=== PATIENT | female | born 1945 | race Caucasian/White ===

== ENCOUNTER → 2019-02-18 | Outpatient (CLI) | payer MEDICARE ==
--- NOTE | 2019-02-20 12:02 | MM ---
Reason for exam: additional evaluation requested from prior study. Last mammogram was performed less than 1 month ago. History: Patient is postmenopausal. Physical Findings: Nurse did not find any significant physical abnormalities on exam. MG 3D Diag Mammo W/Cad STIVEN Bilateral CC and MLO view(s) were taken. Prior study comparison: February 09, 2019, mammogram, performed at [facility]. August 11, 2018, mammogram, performed at [facility]. February 17, 2018, mammogram, performed at [facility]. January 27, 2018, mammogram, performed at [facility]. The breast tissue is heterogeneously dense. This may lower the sensitivity of mammography. There is chronic nodularity bilaterally. No significant new findings when compared with previous films. These results were verbally communicated with the patient on 02/20/19. ASSESSMENT: Benign, BI-RAD 2 RECOMMENDATION: Routine screening mammogram of both breasts in 1 year.
== END | disposition home or self-care (01) ==
LOC: RADMAMWWP 09:26
PROVIDERS: ATTEND Family Medicine
DX: R92.8 Other abnormal and inconclusive findings on diagnostic imaging of breast (principal)
CPT/HCPCS: 77066; G0279; 77062

== ENCOUNTER → 2021-06-05 | Outpatient (CLI) | payer MEDICARE | END | disposition home or self-care (01) | LOC: LABPAT 13:06 | PROVIDERS: ATTEND Orthopaedic Surgery | DX: Z01.812 Encounter for preprocedural laboratory examination (principal) | CPT/HCPCS: 87070 ==

== ENCOUNTER 2021-06-19 10:45 | Day surgery (SDC) | payer MEDICARE ==
--- NOTE | 2021-06-18 12:28 | HP ---
HISTORY AND PHYSICAL REASON FOR ADMISSION: Surgery is scheduled for 06/19/2021 HISTORY OF PRESENT ILLNESS: Justine Hernandez is a 75-year-old patient seen with symptomatic right knee osteoarthritis. We discussed options for treatment. She elected to proceed with right total knee arthroplasty. Consent was obtained. Medical clearance was provided. PAST MEDICAL HISTORY: Hypothyroidism, hypertension. PAST SURGICAL HISTORY: Tubal ligation, cholecystectomy. DAILY MEDICATIONS: Levothyroxine, ibuprofen, hydrochlorothiazide. ALLERGIES: None. SOCIAL HISTORY: She denies tobacco use. PHYSICAL EVALUATION OF THE RIGHT KNEE: Range of motion is -2/3-120. Mild effusion. Tenderness along the lateral joint line, crepitus, lateral patellofemoral compartments with range of motion. Hip rotation without pain. Distal neurovascular exam intact. RADIOGRAPHS: Right knee radiographs reveal severe lateral, moderate patellofemoral compartment osteoarthritis. IMPRESSION: 1. Right knee osteoarthritis. 2. Hypertension. 3. Hypothyroidism. PLAN: Right total knee arthroplasty. Surgery 06/19/2021. MMODL / IJN: [id number] /
[~2021-06-19 10:45] MED LIST: ACETAMINOPHEN TAB 500 MG TAB PO PRN; DEXAMETHASONE SOD PHOSPHATE 4 MG/ML 1 ML VIAL IV ONE; LIDOCAINE 1% (10MG/ML) FOR IV START INTRADERMA PRN; MELOXICAM 7.5 MG TAB PO PRN; MIDAZOLAM 2 MG/2 ML VIAL IV PRN; ONDANSETRON 4 MG/2 ML VIAL IVP ONE; ROPIVACAINE/EPI/CLONIDINE/KET 50 ML SYRINGE MISCELLANE PRN; TRANEXAMIC ACID 1,000 MG in SODIUM CHLORIDE 0.9% 100 ML IVPB PRN
[2021-06-19] MEDS ORDERED: LACTATED RINGERS 1,000 ML IV ONE (11:47)
[2021-06-19] MEDS ORDERED: MIDAZOLAM 2 MG/2 ML VIAL IVP ONE (12:02)
[2021-06-19] MEDS ORDERED: MIDAZOLAM 2 MG/2 ML VIAL ONE (12:24)
[2021-06-19] MEDS ORDERED: KETAMINE 10 MG/ML 20 ML VIAL ONE (12:24)
[2021-06-19] MEDS ORDERED: SODIUM CHLORIDE 0.9% 100 ML BAG ONE (12:24)
[2021-06-19] MEDS ORDERED: ROPIVACAINE 5 MG/ML 30 ML VIAL ONE (12:24)
[2021-06-19] MEDS ORDERED: TRANEXAMIC ACID 1,000 MG/10 ML VIAL ONE (12:24)
[2021-06-19] MEDS ORDERED: fentaNYL (PF) 50 MCG/ML 2 ML AMP ONE (12:24)
[2021-06-19] MEDS ORDERED: PROPOFOL 10 MG/ML 20 ML VIAL IV ONE (12:24)
[2021-06-19] MEDS ORDERED: diphenhydrAMINE 50 MG/ML 1 ML VIAL ONE (12:24)
[2021-06-19] MEDS ORDERED: ROPIVACAINE 0.2%-NS ON-Q PUMP 1,090 MG, EMPTY PAIN BALL 1 EACH MISCELLANE PRN (13:53)
--- NOTE | 2021-06-19 13:57 | P.ANPRN ---
Procedure Note - Anesthesia - Nerve Block Performed Right Adductor Canal Infusion Time Out Performed: Yes (1200) Date of Procedure: 06/19/21 Procedure Start Time: 12:00 Procedure Stop Time: 12:13 Location of Patient: PreOp Indication: Acute Post-Operative Pain, Dx/Pain Location (Right Knee), Requested by Surgeon Specifically requested for management of pain by DrAurelio: Beto Cramer Sedation Type: Sedate with meaningful contact maintained Preparation: Sterile Prep, Sterile Dressing Position: Supine Catheter: Indwelling Needle Types: Pajunk Needle Gauge: 18 Ultrasound used to visualize needle placement: Yes Ultrasound used to observe medication spread: Yes Injectate: 0.5% Ropivacaine (see comment for volume) (20 cc) Blood Aspirated: No Pain Paresthesia on Injection Noted: No Resistance on Injection: Normal Image Stored and Saved: Yes Events: Uneventful and Well Tolerated Left iPack Single Time Out Performed: Yes Date of Procedure: 06/19/21 Location of Patient: PreOp Indication: Acute Post-Operative Pain, Dx/Pain Location (Right Knee) Specifically requested for management of pain by Dr.: Beto Cramer Sedation Type: Sedate with meaningful contact maintained Preparation: Sterile Prep Position: Left Lateral Catheter: None Needle Types: Pajunk Needle Gauge: 21 Ultrasound used to visualize needle placement: Yes Ultrasound used to observe medication spread: Yes Injectate: 0.5% Ropivacaine (see comment for volume) (20 cc) Blood Aspirated: No Pain Paresthesia on Injection Noted: No Resistance on Injection: Normal Image Stored and Saved: Yes Events: Uneventful and Well Tolerated
[2021-06-19] MEDS ORDERED: hydrOXYzine pamoate 25 MG CAP PO PRN (14:14)
[2021-06-19] MEDS ORDERED: HYDROmorphone 0.2 MG/1 ML SYRINGE IVP PRN (14:14)
[2021-06-19] MEDS ORDERED: HYDROcodone/APAP 5-325MG 1 EACH TAB PO PRN (14:14)
[2021-06-19] MEDS ORDERED: HYDROmorphone 0.5 MG/0.5 ML SYRINGE IVP PRN ×2 (14:14)
[2021-06-19] MEDS ORDERED: NALOXONE 0.4 MG/ML 1 ML VIAL IV PRN (14:14)
[2021-06-19] MEDS ORDERED: ONDANSETRON 4 MG/2 ML VIAL IVP PRN (14:14)
--- NOTE | 2021-06-19 14:14 | P.OP ---
Date of Procedure: 06/19/21 Preoperative Diagnosis: Right knee osteoarthritis Postoperative Diagnosis: Right knee osteoarthritis Procedure(s) Performed: Right total knee arthroplasty Implants: 1. Depuy attune size 6 narrow right cruciate retaining cemented 2. Depuy attune size 5 fixed bearing cemented tibial baseplate 3. Depuy attune size 6 fixed bearing cruciate retaining 5 mm polyethylene tibial insert 4. Depuy attune 38 mm all polyethylene cemented patella Anesthesia: regional (Abductor canal catheter, Ipack block), spinal Surgeon: Beto Cramer Instrument Checker #1: Nazario Schwartz Estimated Blood Loss (ml): 45 Pathology: other (Bone) Condition: stable Disposition: PACU Indications for Procedure: 75-year-old patient seen with symptomatic right knee osteoarthritis. After treatment options were discussed, she elected to proceed with total knee arthroplasty. Operative Findings: See description of procedure Description of Procedure: Patient was taken to the operative suite after having an adductor canal catheter placed by the department of anesthesia as well as and Ipack block for postoperative pain management. Patient underwent a spinal anesthetic by the department of anesthesia. Patient was given preoperative IV intake antibiotics and TXA. A well-padded tourniquet was placed about the right lower extremity. The lower extremity was then prepped and draped in the normal sterile orthopedic fashion. The extremity was elevated, a tourniquet was insufflated to 300. A standard anterior incision was made sharply through skin. Dissection was taken down through the subcutaneous soft tissues down to the extensor mechanism. A medial arthrotomy was performed, patella was everted and knee was flexed. There was advanced osteoarthritis noted. I introduced my distal intramedullary femoral drill. I then introduced the distal femoral cutting jig. Edin GATICA secured the cutting jig with 2 pins. I held retractors in position while Edin GATICA performed the distal femoral resection through the guide area we now removed her distal femoral cutting guide. We now placed our 4-in-1 femoral cutting block and positioned and it was secured with 2 pins by Edin GATICA while I held the block in position. The distal femoral finishing was now completed. A proximal tibial cutting guide was positioned. I held the guide in the appropriate position with both hands well Edin GATICA inserted stabilizing pins into the guide. Proximal tibial cut was made. We now placed a trial femoral component into position, along with an appropriate size tibial tray and insert. We now took the knee through range of motion and had full extension good flexion and good overall soft tissue balance noted. The patella was everted and stabilized with 2 towel clips held by Edin GATICA while I performed a flush with patellar quad tendon utilizing a fresh sawblade. We templated the patella, appropriate drill holes were made. An appropriate trial patella was positioned, knee was taken through full range of motion with the patella tracking very nicely. The trial patella was removed. Drill holes were made through the femoral component. All trial components were removed after marking off the appropriate rotation of the tibia. Retractors were now positioned along the proximal tibia. An appropriate keel punch was made with the appropriate size tibial guide by myself on Edin GATICA assisted by holding retractors. At this point appropriate size implants were chosen and opened. The joint was irrigated copiously with pulse lavage mechanical irrigation. The posterior capsule was infiltrated with local analgesic. The wound was irrigated with pulse lavage mechanical irrigation. We mixed antibiotic methylmethacrylate. We placed the knee into flexion. We placed multiple retractors assisted by Edin GATICA to expose the proximal tibia. Once the methyl methacrylate was ready, the tibial component was cemented into place removing any excess methylmethacrylate form by both myself and Edin GATICA. The femoral component was cemented into place removing the removing any excess methylmethacrylate performed by both myself and Edin GATICA. We then inserted the appropriate size polyethylene tibial insert. We made sure that it was locked into position. We took the knee into full extension, and then back in a flexion making sure we had removed any excess methylmethacrylate. The patellar component was then cemented down and secured with clamp. Excess methylmethacrylate removed. We kept the knee in full extension, patellar clamp in position until methylmethacrylate had hardened. Once it had hardened the patellar clamp was removed. The knee was taken through full range of motion. The patella tracked nicely. There was good soft tissue balancing. The tourniquet was now released. Additional hemostasis was achieved via electrocautery. A second gram of TXA was given. The wound again was irrigated with pulse lavage mechanical irrigation. The extensor mechanism was repaired with Ethibond. We checked the repair with range of motion and it was stable. The subcutaneous soft tissues were repaired with Vicryl in layers. The skin was approximated with pernio/Dermabond. Sterile dressings were applied followed by loose web roll and Jagdish bandage. The patient was transferred to a bed, and taken to recovery in stable and satisfactory condition. Edin GATICA assisted with this complex procedure.
--- NOTE | 2021-06-19 15:43 | XR ---
EXAMINATION TYPE: XR knee limited RT DATE OF EXAM: 06/19/2021 COMPARISON: NONE TECHNIQUE: Two views submitted HISTORY: Post op FINDINGS: There is a prosthetic knee in near anatomic alignment. There is soft tissue edema and emphysema. IMPRESSION: 1. Postoperative change. Appears in near-anatomic alignment
[2021-06-19] MEDS: HYDROmorphone 0.5 MG/0.5 ML SYRINGE IVP PRN ×2 (17:33→18:05)
[2021-06-19] MEDS: SODIUM CHLORIDE 0.9% 1,000 ML IV SCH (18:12)
[2021-06-19] MEDS: LACTATED RINGERS 1,000 ML IV SCH (18:15)
[2021-06-19] MEDS: ENOXAPARIN 30 MG/0.3 ML SYRINGE SQ SCH (19:58)
[2021-06-19] MEDS ORDERED: SENNOSIDES-DOCUSATE SODIUM 1 EACH TAB PO SCH (21:00)
[2021-06-19] MEDS: HYDROcodone/APAP 5-325MG 1 EACH TAB PO PRN (22:26)
--- NOTE | 2021-06-19 22:55 | P.CONS ---
History of Present Illness - Reason for Consult Consult date: 06/19/21 Postoperative medical management Requesting physician: Beto Cramer - Chief Complaint Right total knee arthroplasty - History of Present Illness 75-year-old female with hypothyroid hypertension and osteoarthritis Patient comes in for scheduled right total knee arthroplasty due to severe advanced os arthritis Patient tolerated procedure well denies any observed immediate postoperative complications denies any chest pain trouble breathing nausea vomiting. She is tolerating by mouth intake. She currently feels pain is well tolerated and controlled. She claims that she is at good baseline status of health she has hypertension and hypothyroid, takes medications for both. She currently denies any medical concerns at this point Review of Systems Pertinent positives as noted in HPI. All other systems were reviewed and are negative Past Medical History Past Medical History: Hypertension, Osteoarthritis (OA), Thyroid Disorder Additional Past Medical History / Comment(s): chronic kidney disease stage 2, urinary leakage. Had both Covid (Moderna) vaccines History of Any Multi-Drug Resistant Organisms: None Reported Past Surgical History: Cholecystectomy, Orthopedic Surgery, Tubal Ligation Additional Past Surgical History / Comment(s): cyst removed from left wrist, arthroscopy rt knee Past Anesthesia/Blood Transfusion Reactions: No Reported Reaction Past Psychological History: No Psychological Hx Reported Smoking Status: Never smoker Past Alcohol Use History: Rare Past Drug Use History: None Reported - Past Family History Father Family Medical History: CVA/TIA Mother Family Medical History: No Reported History Medications and Allergies Home Medications Medication Instructions Recorded Confirmed Type Calcium Carbonate [Calcium] 600 mg PO DAILY 02/21/16 06/14/21 History Ibuprofen [Motrin] 600 mg PO DIRECTED PRN 02/21/16 06/14/21 History Levothyroxine Sodium [Synthroid] 25 mcg PO QAM 02/21/16 06/19/21 History Multivitamins, Thera [Multivitamin] 1 tab PO DAILY 02/21/16 06/14/21 History Hydrochlorothiazide 12.5 mg PO QAM 06/14/21 06/14/21 History [hydroCHLOROthiazide] Allergies Allergy/AdvReac Type Severity Reaction Status Date / Time No Known Allergies Allergy Verified 06/19/21 11:47 Physical Exam Vitals: Vital Signs Temp Pulse Pulse Resp BP BP Pulse Ox 06/19/21 18:47 97.7 F 72 16 117/74 95 06/19/21 17:50 61 16 127/73 98 06/19/21 17:33 64 16 131/73 99 06/19/21 16:45 53 L 16 118/75 99 06/19/21 16:10 53 L 16 111/65 98 06/19/21 15:41 50 L 16 119/64 96 06/19/21 15:15 51 L 16 120/63 100 06/19/21 15:00 55 L 16 130/60 100 06/19/21 14:45 56 L 16 114/56 100 06/19/21 14:31 97.5 F L 64 16 145/65 100 06/19/21 11:45 98.3 F 95 16 154/80 96 Intake and Output 06/19/21 06/19/21 06/19/21 06:59 14:59 22:59 Intake Total 950 100 Output Total 45 650 Balance 905 -550 Intake: IV 950 100 Output: Urine 650 Estimated Blood Loss 45 Other: # Voids 1 Weight 83.6 kg 83.6 kg Constitutional: No acute distress, conversant, pleasant Eyes: Anicteric sclerae, moist conjunctiva, Pupils equal round reactive to light ENMT: NC/AT Oropharynx clear, no erythema, or exudates Neck: Supple, FROM, no masses, or JVD No carotid bruits No thyromegaly Lungs: Clear to auscultation Clear to percussion Normal respiratory effort, no accessory muscle use Cardiovascular: Heart regular in rate and rhythm, No murmurs, gallops, or rubs No peripheral edema Abdominal: Soft Nontender, no guarding, rebound or rigidity Abdomen moving with respiration Normoactive bowel sounds No hepatomegaly, No splenomegaly No palpable mass No abdominal wall hernia noted Skin: Normal temperature, tone, texture, turgor No induration No subcutaneous nodules No rash, lesions No ulcers Extremities: No digital cyanosis No clubbing Pedal pulses intact and symmetrical Radial pulses intact and symmetrical No calf tenderness Psychiatric: Alert and oriented to person, place and time Appropriate affect fair judgement Neuro Muscles Strength 5/5 in bilateral upper extremity and left lower extremity, right lower extremity limited exam due to recent surgery Sensation to light touch grossly present throughout Cranial nerves II-XII grossly intact No focal sensory deficits Lymphatics: no palpable cervical or supraclavicular , or inguinal lymph nodes Assessment and Plan Assessment: Status post right total knee arthroplasty postoperative day 0 Pain control and DVT prophylaxis management per orthopedics Hypertension controlled Resume hydrochlorothiazide in a.m. Hypothyroid Resume levothyroxine in a.m. Follow-up basic metabolic panel and CBC in a.m. Thank you for allowing us to participate in the care of this patient. Do not hesitate to contact us with questions. Someone can be reached from the [facility] hospitalist group at all hours of the day at [phone].
[2021-06-20] MEDS: HYDROcodone/APAP 5-325MG 1 EACH TAB PO PRN ×2 (05:32→11:46)
[2021-06-20] MEDS: LACTATED RINGERS 1,000 ML IV SCH (06:21)
[2021-06-20] MEDS ORDERED: LEVOTHYROXINE 25 MCG TAB PO SCH (06:30)
--- NOTE | 2021-06-20 07:05 | P.PN ---
Progress Note - Text Postoperative day # 1 status post total knee arthroplasty, on adductor canal perineural catheter placed for postoperative analgesia. Ropivacaine 0.2% 8 mL per hour through ON-Q pump continuous infusion. Pain is well controlled. On visual analog scale 1/10 Patient is taking PRN oral pain medications. Catheter site: Looks Ok. There is no erythema or tenderness. Continue with the current pain management plan and will follow.
[2021-06-20] MEDS: ENOXAPARIN 30 MG/0.3 ML SYRINGE SQ SCH (07:30)
[2021-06-20 07:57] VITALS: RESP 16; TEMP 98.6
[2021-06-20] MEDS ORDERED: hydroCHLOROthiazide 12.5 MG CAP PO SCH (09:00)
[2021-06-20] MEDS ORDERED: MELOXICAM 7.5 MG TAB PO SCH (09:00)
--- NOTE | 2021-06-20 10:22 | P.DS ---
Providers Date of admission: 06/19/2021 Expected date of discharge: 06/20/21 Attending physician: Beto Cramer Consults: 06/19/21 14:14 Consult Physician Routine Consulting Provider: Javy Briceño Consult Reason/Comments: Medical management Do you want consulting provider notified?: Yes Primary care physician: Edin Dominguez Hospital Course: Date of admission: 06/19/2021 Date of discharge: 06/20/2021 Admission diagnosis: Right knee osteoarthritis Discharge diagnosis: Same Attending physician: Dr. Cramer Surgical procedures: Right total knee arthroplasty Brief history: Patient is a 75-year-old female with a history of progressive primary right knee osteoarthritis. At this point patient has failed conservative treatment measures and has opted to proceed with a elective right total knee arthroplasty. Hospital course: Details of patient's surgery can be found in operative report. Patient tolerated the procedure well and was subsequently transported to orthopedic floor. Patient's orthopeidc and medical care was provided daily. Patient had daily laboratory tests performed for evaluation of overall blood c ounts. Patient had daily physical therapy to include strengthening range of motion as well as education with walker ambulation. Patient was treated with Lovenox for their postoperative DVT prophylaxis during their inpatient stay. Patient was noted to have a relatively uneventful postoperative course. Patient reported satisfactory pain control with oral pain medications by postoperative day 1. Patient showed satisfactory progress with physical therapy. Patient moved steadily through the program and had no difficulty meeting the goals by postoperative day 1. Given patient's otherwise satisfactory course and having met physical therapy goals, plan is to discharge patient home on postoperative day 1. Discharge condition/disposition: Patient will be discharged home in stable condition. Discharge medications: Instructions are given on resumption of patient's normal daily medications per primary care recommendation, in addition patient will be prescribed Lyrica 75 mg; [place] 5 mg/325 mg; aspirin 81 mg twice a day. Discharge instructions: 1. Wound care and infection precautions, keep incision dry and covered while showering, no lotions, creams, moisturizers. No soaking, tubs, pools, hottubs. Do not scrub over the incision. 2. Weight-bear as tolerated with walker / cane until follow-up. 3. Ice and elevate when necessary. Do not exceed 20 minutes per hour with ice pack. 4. Utilize compression sleeve until seen at first follow up appointment. 5. Visiting nursing care. 6. Home physical therapy including home CPM. 7. Pain meds and anticoagulants per prescription. 8. Pain medication has potential to cause constipation. Increase oral fluid and fiber intake. Contact primary care provider if you have not had a bowel movement within 48 hours after discharge 9. No anti-inflammatory medication until discussed at first post operative visit, this including Motrin, Aleve, Mobic, Diclofenac. 10. Follow up in office at 2 weeks postop with Edin Schwartz PA-C / Charles Campbell PA-C 11. Follow up with your primary care doctor 7-10 days after discharge. 12. Contact [facility] with any questions, . Assessment: Right knee osteoarthritis Procedures: Right total knee arthroplasty Patient Condition at Discharge: Good Plan - Discharge Summary Discharge Rx Participant: No New Discharge Prescriptions: New HYDROcodone/APAP 5-325MG [[place] 5-325] 1 tab PO Q6HR PRN #21 tab PRN Reason: Pain Aspirin [Adult Low Dose Aspirin EC] 81 mg PO BID #60 tablet. Pregabalin [Lyrica] 75 mg PO BID #21 cap No Action Multivitamins, Thera [Multivitamin] 1 tab PO DAILY Levothyroxine Sodium [Synthroid] 25 mcg PO QAM Ibuprofen [Motrin] 600 mg PO DIRECTED PRN PRN Reason: Pain Calcium Carbonate [Calcium] 600 mg PO DAILY Hydrochlorothiazide [hydroCHLOROthiazide] 12.5 mg PO QAM Discharge Medication List Calcium Carbonate [Calcium] 600 mg PO DAILY 02/21/16 [History] Ibuprofen [Motrin] 600 mg PO DIRECTED PRN 02/21/16 [History] Levothyroxine Sodium [Synthroid] 25 mcg PO QAM 02/21/16 [History] Multivitamins, Thera [Multivitamin] 1 tab PO DAILY 02/21/16 [History] Hydrochlorothiazide [hydroCHLOROthiazide] 12.5 mg PO QAM 06/14/21 [History] Aspirin [Adult Low Dose Aspirin EC] 81 mg PO BID #60 tablet. 06/20/21 [Rx] HYDROcodone/APAP 5-325MG [[place] 5-325] 1 tab PO Q6HR PRN #21 tab 06/20/21 [Rx] Pregabalin [Lyrica] 75 mg PO BID #21 cap 06/20/21 [Rx] Follow up Appointment(s)/Referral(s): [facility] [NON-STAFF] - As Needed (Continuous Passive Motion knee machine and walker) [facility] [NON-STAFF] - As Needed Activity/Diet/Wound Care/Special Instructions: Orthopedic Discharge Instructions: 1. Wound care and infection precautions, keep incision dry and covered while showering, no lotions, creams, moisturizers. No soaking, pools, hot tubs. Do not scrub over incision. 2. Weight-bear as tolerated with walker / cane until follow-up. 3. Ice and elevate when necessary. Do not exceed 20 minutes per hour with ice pack. 4. Utilize compression sleeve until seen at first follow up appointment. 5. Pain meds and anticoagulants per prescription. 6. Pain medication has potential to cause constipation. Increase oral fluid and fiber intake. Contact primary care provider if you have not had a bowel movement within 48 hours after discharge. 7. No anti-inflammatory medication until discussed at first post operative visit, this including Motrin, Aleve, Mobic, Diclofenac 8. Follow up in office at 2 weeks postop with Edin Schwartz PA-C / Charles Campbell PA-C 9. Follow up with your primary care doctor 7-10 days after discharge. 10. Contact [facility] with any questions, . Discharge Disposition: HOME WITH HOME HEALTH SERVICES
[2021-06-20] MEDS: SODIUM CHLORIDE 0.9% 1,000 ML IV SCH (10:26)
[2021-06-20 11:03] LABS: Basophils # (A) 0.03 X 10*3/uL (0.00-0.10); Basophils % (A) 0.3 %; Eosinophils # (A) 0.03 X 10*3/uL (0.04-0.35); Eosinophils % (A) 0.3 %; HCT 36.4 % (37.2-46.3); HGB 11.8 g/dL (12.0-15.0); Lymphocytes # (A) 1.62 X 10*3/uL (0.90-5.00); Lymphocytes % (A) 16.4 %; MCH 30.5 pg (27.0-32.0); MCHC 32.4 g/dL (32.0-37.0); MCV 94.1 fL (80.0-97.0); Mean Platelet Volume 10.4 fL (9.5-12.2); Monocytes # (A) 0.91 X 10*3/uL (0.20-1.00); Monocytes % (A) 9.2 %; Neutrophils # (A) 7.27 X 10*3/uL (1.80-7.70); Neutrophils % (A) 73.5 %; Platelet Count 191 X 10*3/uL (140-440); RBC 3.87 X 10*6/uL (4.10-5.20); WBC 9.89 X 10*3/uL (4.50-10.00)
[2021-06-20 11:57] VITALS: BP 108/71; PULSE 65
--- NOTE | 2021-06-20 12:44 | P.PN ---
Subjective Progress Note Date: 06/20/21 Patient was seen and evaluated by me this morning. Her blood pressure was slightly low this morning the patient denies any dizziness or lightheadedness. Repeat blood pressure later was normal. Her pain is well controlled. Objective - Vital Signs Vital signs: Vital Signs Temp 98.6 F 06/20/21 07:56 Pulse 65 06/20/21 11:57 Resp 16 06/20/21 07:56 BP 108/71 06/20/21 11:57 Pulse Ox 95 06/20/21 07:56 Intake & Output 06/19/21 06/20/21 06/20/21 18:59 06:59 18:59 Intake Total 1050 400 Output Total 45 650 Balance 1005 -250 Weight 83.6 kg 83.6 kg Intake: IV 1050 Intake, IV Titration 400 Amount ceFAZolin 2 gm In Sodium 400 Chloride 0.9% 50 ml @ 100 mls/hr IVPB Q8H KALLI Rx#: [id number] Output: Urine 650 Estimated Blood Loss 45 Other: Voiding Method Toilet # Voids 1 - Exam General: The patient is awake and alert, in no distress Eye: there is normal conjunctiva bilaterally. Neck: The neck is supple, there is no JVD. Cardiovascular: Normal S1-S2, no S3-S4, no murmurs. Respiratory: Lungs clear to auscultation bilaterally Gastrointestinal: Abdomen is soft, nontender Musculoskeletal: There is no pedal edema. Neurological:. Speech is normal. Skin: Skin is warm and dry - Labs CBC & Chem 7: 06/20/21 07:02 Labs: Abnormal Lab Results - Last 24 Hours (Table) 06/20/21 Range/Units 07:02 RBC 3.87 L (4.10-5.20) X 10*6/uL Hgb 11.8 L (12.0-15.0) g/dL Hct 36.4 L (37.2-46.3) % Eosinophils # 0.03 L (0.04-0.35) X 10*3/uL Assessment and Plan Assessment: 1. Postoperative day #1 status post total right knee arthroplasty. Postoperative care, pain control, and DVT prophylactic per orthopedic protocol. 2. Essential hypertension, blood pressure within acceptable range. Continue home medications 3. Hypothyroidism on levothyroxin Today, I reviewed her medication list and lab work results. Continue home medications. Patient is medically cleared for discharge home. Physical therapy as directed.
--- NOTE | 2021-06-20 12:49 | P.PN ---
Subjective Progress Note Date: 06/20/21 Principal diagnosis: Right knee osteoarthritis Patient seen at bedside this morning. Patient sitting up in chair with legs elevated and icing knee. Patient says she is in minimal pain. She says she received a pain pill this morning and before that was late last night. Patient says physical therapy went well this morning and that she is ready to go home. Patient denies chest pain, fever, chest breath, nausea, vomiting, change in vision, loss of bowel/bladder control. Objective - Vital Signs Vital signs: Vital Signs Temp 98.6 F 06/20/21 07:56 Pulse 63 06/20/21 07:56 Resp 16 06/20/21 07:56 BP 96/60 06/20/21 07:56 Pulse Ox 95 06/20/21 07:56 Intake & Output 06/19/21 06/20/21 06/20/21 18:59 06:59 18:59 Intake Total 1050 400 Output Total 45 650 Balance 1005 -250 Weight 83.6 kg 83.6 kg Intake: IV 1050 Intake, IV Titration 400 Amount ceFAZolin 2 gm In Sodium 400 Chloride 0.9% 50 ml @ 100 mls/hr IVPB Q8H KALLI Rx#: [id number] Output: Urine 650 Estimated Blood Loss 45 Other: # Voids 1 - Exam Right knee: Incision is clean, dry, and intact. The silver foam tape is in good condition. There is minimal soft tissue swelling and ecchymosis surrounding the medial and lateral aspects of the incision. Calf is soft, no tenderness with palpation. Plantar flexion, dorsiflexion, EHL, FHL are intact. Sensory exam to light touch throughout the extremity is intact, dorsal pedis pulses 2+. - Labs CBC & Chem 7: 06/20/21 07:02 Assessment and Plan Assessment: Right knee osteoarthritis Plan: 1. Right knee osteoarthritis - right total knee arthroplasty performed yesterday, 06/19/2021. Patient stable this morning; plan for discharge home today 2. Appreciate medical management 3. Pain management - stable at this time. Going home with [place] 5 mg/325 mg and Lyrica 75 mg 4. GI prophylaxis/ DVT prophylaxis - senna; lovenox; patient going home with aspirin 81 mg BID x 30 days 5. Encourage incentive spirometer use 6. PT/OT - weightbearing as tolerated with walker for assistance 7. Discharge planning - discharge home today Time with Patient: Less than 30
[2021-06-20 14:00] LABS: African American GFR (CKD) 97.5 (60.0-200.0); Anion Gap 5.7 mmol/L (4.00-12.00); BUN/Creat Ratio 18.57 Ratio (12.00-20.00); Calcium 8.4 mg/dL (8.7-10.3); Carbon Dioxide 25.3 mmol/L (21.6-31.8); Non-African American GFR(CKD) 84.2 (60.0-200.0); Potassium 4.1 mmol/L (3.5-5.5)
== END 2021-06-20 13:46 | disposition home health service (06) ==
LOC: OR 10:45 → 4SSUR 14:05 → OR 06-20 13:46
PROVIDERS: ATTEND Orthopaedic Surgery
DX: M17.11 Unilateral primary osteoarthritis, right knee (principal); E03.9 Hypothyroidism, unspecified; I12.9 Hypertensive chronic kidney disease with stage 1 through stage 4 chronic kidney disease, or unspecified chronic kidney disease; N18.2 Chronic kidney disease, stage 2 (mild); Z98.51 Tubal ligation status; Z90.49 Acquired absence of other specified parts of digestive tract; Z79.1 Long term (current) use of non-steroidal anti-inflammatories (NSAID); Z79.890 Hormone replacement therapy; Z79.899 Other long term (current) drug therapy; Z79.82 Long term (current) use of aspirin
CPT/HCPCS: 27447; 97161; 64999; 64448; 76942; 80048; 85025; 88300; 73560; C1776; C1713 ×2; J2250; J1200; J1100; J0690 ×2; J2405; J3010; J1650; J2795 ×2; J2704; J1170

== ENCOUNTER → 2022-03-05 | Outpatient (CLI) | payer MEDICARE | END | disposition home or self-care (01) | LOC: LABWHC1 07:15 | PROVIDERS: ATTEND Orthopaedic Surgery | DX: Z01.812 Encounter for preprocedural laboratory examination (principal); Z22.322 Carrier or suspected carrier of Methicillin resistant Staphylococcus aureus; M16.11 Unilateral primary osteoarthritis, right hip | CPT/HCPCS: 87070 ==

== ENCOUNTER 2022-03-12 12:57 | Day surgery (SDC) | payer MEDICARE ==
[2022-03-09 10:08] VITALS: BMI 28.5
--- NOTE | 2022-03-11 12:40 | HP ---
HISTORY AND PHYSICAL DATE OF SURGERY: 03/12/2022 Justine Hernandez is a 76-year-old patient seen with symptomatic right hip osteoarthritis. We discussed options for treatment. She elected to proceed with direct anterior right total hip arthroplasty. Consent was obtained. Clearance was provided by Johnathan Turner NP. PAST MEDICAL HISTORY: Hypothyroidism, hypertension, IBS. PAST SURGICAL HISTORY: Tubal ligation, breast biopsy, right total knee arthroplasty. DAILY MEDICATIONS: Levothyroxine, hydrochlorothiazide, multivitamin, ibuprofen. ALLERGIES: NONE. SOCIAL HISTORY: She denies tobacco use. PHYSICAL EVALUATION OF THE RIGHT HIP: She has diffuse tenderness. She has very limited range of motion with severe pain. Positive hip impingement sign. Straight-leg raise is negative. Her distal neurovascular exam is intact. Radiographs of the right hip reveal severe osteoarthritic changes. IMPRESSION: 1. Right hip osteoarthritis. 2. Hypertension. 3. Hypothyroidism. PLAN: Direct anterior right total hip arthroplasty. MMODL / IJN: [id number] /
[~2022-03-12 12:57] MED LIST changes: -DEXAMETHASONE SOD PHOSPHATE 4 MG/ML 1 ML VIAL IV ONE; -LIDOCAINE 1% (10MG/ML) FOR IV START INTRADERMA PRN; -MIDAZOLAM 2 MG/2 ML VIAL IV PRN; -ONDANSETRON 4 MG/2 ML VIAL IVP ONE; -ROPIVACAINE/EPI/CLONIDINE/KET 50 ML SYRINGE MISCELLANE PRN; -TRANEXAMIC ACID 1,000 MG in SODIUM CHLORIDE 0.9% 100 ML IVPB PRN; +TRANEXAMIC ACID IN NACL,ISO-OS 1,000 MG in SALINE 1 100ML.BAG IVPB PRN
[2022-03-12] MEDS ORDERED: LACTATED RINGERS 1,000 ML IV SCH (13:09)
[2022-03-12] MEDS ORDERED: ONDANSETRON 4 MG/2 ML VIAL IVP ONE (13:09)
[2022-03-12] MEDS ORDERED: DEXAMETHASONE SOD PHOSPHATE 4 MG/ML 1 ML VIAL IV ONE (13:09)
[2022-03-12] MEDS ORDERED: HYDROmorphone 0.5 MG/0.5 ML SYRINGE IVP PRN ×4 (13:09→16:41)
[2022-03-12] MEDS ORDERED: LIDOCAINE 1% (10MG/ML) FOR IV START INTRADERMA PRN (13:09)
[2022-03-12] MEDS ORDERED: MIDAZOLAM 2 MG/2 ML VIAL IV PRN (13:09)
[2022-03-12] MEDS ORDERED: MIDAZOLAM 2 MG/2 ML VIAL ONE (15:05)
[2022-03-12] MEDS ORDERED: PROPOFOL 10 MG/ML 20 ML VIAL IV ONE (15:05)
[2022-03-12] MEDS ORDERED: KETAMINE 10 MG/ML 20 ML VIAL ONE (15:05)
[2022-03-12] MEDS ORDERED: diphenhydrAMINE 50 MG/ML 1 ML VIAL ONE (15:05)
[2022-03-12] MEDS ORDERED: TRANEXAMIC ACID IN NACL,ISO-OS 1,000 MG/100 ML BAG ONE (15:05)
[2022-03-12] MEDS ORDERED: fentaNYL (PF) 50 MCG/ML 2 ML AMP ONE (15:05)
[2022-03-12] MEDS ORDERED: BUPIVACAINE (PF) 0.5% 30 ML VIAL SQ ONE ×2 (15:54→16:26)
[2022-03-12] MEDS ORDERED: ceFAZolin 1,000 MG in SODIUM CHLORIDE 0.9% 1,000 ML IRRIGATION ONE (15:55)
[2022-03-12] MEDS ORDERED: LACTATED RINGERS 1,000 ML IV ONE (16:32)
[2022-03-12] MEDS ORDERED: ONDANSETRON 4 MG/2 ML VIAL IVP PRN (16:41)
[2022-03-12] MEDS ORDERED: NALOXONE 0.4 MG/ML 1 ML VIAL IV PRN (16:41)
[2022-03-12] MEDS ORDERED: HYDROcodone/APAP 5-325MG 1 EACH TAB PO PRN (16:41)
--- NOTE | 2022-03-12 16:41 | P.OP ---
Date of Procedure: 03/12/22 Preoperative Diagnosis: Right hip osteoarthritis Postoperative Diagnosis: Right hip osteoarthritis Procedure(s) Performed: Direct anterior right total hip arthroplasty Implants: 1. Depuy Corail 135 standard collar size 13 press-fit femoral stem 2. Depuy pinnacle 54 mm multi hole press-fit acetabular shell 3. Depuy pinnacle neutral polyethylene acetabular liner 36 mm ID 54 mm OD 4. Biolox delta ceramic femoral head +1.5 36 mm Anesthesia: GERI, spinal Surgeon: Beto Cramer Photographer Scientific #1: Charles Campbell Estimated Blood Loss (ml): 125 Pathology: other (Femoral head) Condition: stable Disposition: PACU Indications for Procedure: 76-year-old patient seen with symptomatic right hip osteoarthritis. After treatment options were discussed, she elected to proceed with direct anterior right total hip arthroplasty. Operative Findings: See description of procedure Description of Procedure: The patient was taken to the operative suite. Patient underwent a spinal anesth etic by the department of anesthesia. Patient was then transferred to the Jacki table. Patient was given preoperative IV antibiotics and TXA. Both lower extremities were placed in standard leg spars. The hip was then prepped and draped in the normal sterile orthopedic fashion. A standard anterior incision was made beginning 3 cm lateral and 1 cm distal to the ASIS extending 10 cm. Dissection was then carried down through the subcutaneous soft tissues down to the fascia overlying the tensor fascia ronda. I noted the patient was having some increased pain and anesthesia converted her to a general anesthetic at this point. An incision was now made through the fascia. Careful dissection was taken down exposing the tensor fascia ronda muscle. A Cobra retractor was now placed along the medial femoral neck and a second one along the lateral femoral neck. The venous circumflex vessels were now identified, cauterized and clipped. We identified the anterior hip capsule. An incision was made through the hip capsule along the lateral border. I performed a partial anterior capsulectomy. Retractors were now placed around the femoral neck itself. A femoral neck cut was now made with a sagittal saw. It was completed with an osteotome at the lateral neck area. The femoral head was now removed without difficulty. The extremity was now rotated to 60 of external rotation. It was locked in position. Residual labrum was now debrided out. Serial reaming was performed of the acetabulum while Charles GATICA assisted holding an anterior retractor for exposure. Once we reached the appropriate size and a trial was position and fit nicely. The appropriate size was now chosen opened and made available. It was introduced into the acetabulum without difficulty. The C-arm/fluoroscopy was now brought into the operative field. We made sure we had a true AP pelvic view. We now under direct C-arm/fluoroscopy introduced into the acetabular component with appropriate version and inclination. I held the cup in appropriate position while Charles GATICA used a mallet to seat the acetabular component. I noted the component now to be well seated and stable. Acetabular cup introduce her was removed. The C-arm was pulled back. An appropriate liner was introduced and clicked into position. It was felt to be stable. At this point retractors were removed. The extremity was now placed into 140 external rotation with no traction. The leg was now dropped to the ground and adducted. Appropriate retractors were now positioned along the proximal femur. We also placed our femoral look into position. Additional capsular releasing was performed to gain access to the proximal femur. We now used a box osteotome. A canal finder was now utilized. Serial broaching was no w performed with the assistance of Charles GATICA tapping the broaches down with a mallet while held the broach in appropriate rotation and position. This was done until we reached the appropriate size with good overall rotational stability. Appropriate calcar planing was performed. A trial head/neck was placed into position. The hip was now reduced. The C-arm/fluoroscopy was brought back into the operative field. I obtained an AP pelvis demonstrating adequate leg length alignment. The trial components appeared adequately sized inadequately position. The C-arm/fluoroscopy was pulled back. Retractors were repositioned and the hip was dislocated. The leg was again taken down to the ground and adducted. Appropriate retractors were repositioned as well as the femoral hook. All trial components were removed. The femoral implant was opened along with the femoral head. The femoral implant was introduced on the appropriate handle into our pre-broached area. I held the component position while Charles GATICA used a mallet to seat the femoral component. The femoral component was now noted to be well seated and stable.. The femoral head was introduced with good positioning and fixation noted. Retractors were now removed. The hip was now reduced. There appeared be good positioning of the hip confirmed on intraoperative fluoroscopy. Spot films were obtained to document this. A second gram of TXA was given. The deep and superficial soft tissues were infiltrated with local analgesic. Bipolar cautery had been utilized intermittently through the procedure for hemostasis. The wound was irrigated copiously with pulse lavage mechanical irrigation. The fascia was repaired with Vicryl suture. The subcutaneous soft tissues were repaired in layers with Vicryl suture. The skin was approximated with pernio/Dermabond. Sterile dressings were applied. Patient was then awakened, transferred to a bed and taken to recovery in stable condition. Charles GATICA assisted with the complex procedure.
[2022-03-12] MEDS ORDERED: SENNOSIDES-DOCUSATE SODIUM 1 EACH TAB PO SCH (21:00)
--- NOTE | 2022-03-12 21:12 | XR ---
EXAMINATION TYPE: XR Hip Limited RT, FL guidance operating room DATE OF EXAM: 03/12/2022 4:31 PM INDICATION: Patient age:Female; 76 years old; Reason for study: rt hip osteoarthritis;. Intraoperative fluoroscopic services were provided for internal fixation of a Right hip Total fluoros copy time is 21.4 seconds with a total of 2 submitted images to PACS. Please see the operative note f or further details.
[2022-03-12] MEDS: LACTATED RINGERS 1,000 ML IV SCH (21:28)
[2022-03-13] MEDS: HYDROcodone/APAP 5-325MG 1 EACH TAB PO PRN ×3 (05:53→16:13)
[2022-03-13] MEDS ORDERED: hydroCHLOROthiazide 12.5 MG CAP PO SCH (09:00)
[2022-03-13] MEDS ORDERED: ENOXAPARIN 40 MG/0.4 ML SYRINGE SQ SCH (09:00)
[2022-03-13] MEDS ORDERED: LEVOTHYROXINE 25 MCG TAB PO SCH (09:00)
[2022-03-13] MEDS ORDERED: FAMOTIDINE 20 MG TAB PO SCH (09:00)
[2022-03-13 09:13] LABS: Basophils # (A) 0.03 X 10*3/uL (0.00-0.10); Basophils % (A) 0.3 %; Eosinophils # (A) 0.02 X 10*3/uL (0.04-0.35); Eosinophils % (A) 0.2 %; HCT 34.5 % (37.2-46.3); HGB 11.4 g/dL (12.0-15.0); Immature Grans, Automated 0.4 %; Lymphocytes # (A) 1.59 X 10*3/uL (0.90-5.00); Lymphocytes % (A) 17.5 %; MCH 30.9 pg (27.0-32.0); MCV 93.5 fL (80.0-97.0); Mean Platelet Volume 10.2 fL (9.5-12.2); Monocytes # (A) 0.92 X 10*3/uL (0.20-1.00); Monocytes % (A) 10.2 %; NRBC Per 100 WBC 0 /100 WBCS (0.0-0.0); Neutrophils # (A) 6.46 X 10*3/uL (1.80-7.70); Neutrophils % (A) 71.4 %; Platelet Count 206 X 10*3/uL (140-440); RBC 3.69 X 10*6/uL (4.10-5.20); RDW 12.8 % (11.5-14.5); WBC 9.06 X 10*3/uL (4.50-10.00)
[2022-03-13] MEDS: LACTATED RINGERS 1,000 ML IV SCH (10:19)
--- NOTE | 2022-03-13 10:38 | P.PN ---
Subjective Progress Note Date: 03/13/22 Principal diagnosis: status post direct anterior right total hip arthroplasty Patient was evaluated today at bedside, she is resting in her hospital chair. She's been up ambulating with the assistance of a walker. She was able to also work with physical therapy and did very well. Her pain is currently controlled with oral medication. She currently has no headaches, lightheadedness, chest pain or shortness of breath. Objective - Vital Signs Vital signs: Vital Signs Temp 98.5 F 03/13/22 08:00 Pulse 73 03/13/22 08:00 Resp 16 03/13/22 08:00 BP 102/63 03/13/22 08:00 Pulse Ox 94 L 03/13/22 08:00 Intake & Output 03/12/22 03/13/22 03/13/22 18:59 06:59 18:59 Intake Total 1251 Output Total 125 500 Balance 1126 -500 Weight 84.4 kg 84.4 kg Intake: IV 1251 Output: Urine 500 Estimated Blood Loss 125 Other: # Voids 1 - Exam Right lower extremity: Incision is clean, dry, and intact. The foam dressing is in good condition. There is minimal soft tissue swelling and ecchymosis surrounding the medial and lateral aspects of the incision. Calf is soft, no tenderness with palpation. Plantar flexion, dorsiflexion, EHL, FHL are intact. Sensory exam to light touch throughout the extremity is intact, dorsal pedis pulses 2+. - Labs CBC & Chem 7: 03/13/22 05:46 Labs: Abnormal Lab Results - Last 24 Hours (Table) 03/13/22 Range/Units 05:46 RBC 3.69 L (4.10-5.20) X 10*6/uL Hgb 11.4 L (12.0-15.0) g/dL Hct 34.5 L (37.2-46.3) % Eosinophils # 0.02 L (0.04-0.35) X 10*3/uL Assessment and Plan Assessment: Postoperative day #1 status post direct anterior right total hip arthroplasty Plan: Pain control, we'll discharge home on [place] 5 mg/325 mg GI and DVT prophylaxis, aspirin 81 mg twice a day for 1 month Wound care instructions were discussed, this including showering Discussed icing and elevating techniques Home nurse/therapy after discharge Medical recommendations Discharge planning: Plan for discharge home today Time with Patient: Less than 30
--- NOTE | 2022-03-13 10:44 | P.DS ---
Providers Date of admission: 03/12/2022 Expected date of discharge: 03/13/22 Attending physician: Beto Cramer Consults: 03/12/22 16:41 Consult Physician Routine Consulting Provider: Javy Briceño Consult Reason/Comments: Medical management Do you want consulting provider notified?: Yes Primary care physician: Edin Dominguez Hospital Course: Date of admission: 03/12/2022 Date of discharge: 03/13/2022 Admission diagnosis: S/p direct anterior right total hip replacement Discharge diagnosis: Same Attending physician: Dr. Cramer Surgical procedures: Direct anterior right total hip replacement Brief history: Patient is a 76-year-old female with a history of progressive primary right hip osteoarthritis. At this point patient has failed conservative treatment measures and has opted to proceed with a elective direct anterior right total hip arthroplasty. Hospital course: Details of patient's surgery can be found in operative report. Patient tolerated the procedure well and was subsequently transported to orthopedic floor. Patient's orthopeidc and medical care was provided daily. Patient had daily laboratory tests performed for evaluation of overall blood counts. Patient had daily physical therapy to include strengthening range of motion as well as education with walker ambulation. Patient was treated with Lovenox for their postoperative DVT prophylaxis during their inpatient stay. Patient was noted to have a relatively uneventful postoperative course. Patient reported satisfactory pain control with oral pain medications by postoperative day 0. Patient showed satisfactory progress with physical therapy. Patient moved steadily through the program and had no difficulty meeting the goals by postoperative day 1. Given patient's otherwise satisfactory course and having met physical therapy goals, plan is to discharge patient home on postoperative day 1. Discharge condition/disposition: Patient will be discharged home in stable c ondition. Discharge medications: Instructions are given on resumption of patient's normal daily medications per primary care recommendation, in addition patient will be prescribed [place] 5 mg/325 mg, Colace 100 mg, aspirin 81 mg. Discharge instructions: 1. Wound care and infection precautions, keep incision dry and covered while showering, no lotions, creams, moisturizers. No soaking, tubs, pools, hottubs. Do not scrub over the incision. 2. Weight-bear as tolerated with walker / cane until follow-up. 3. Ice and elevate when necessary. Do not exceed 20 minutes per hour with ice pack. 4. Utilize compression sleeve until seen at first follow up appointment. 5. Visiting nursing care. 6. Home physical therapy. 7. Pain meds and anticoagulants per prescription. 8. Pain medication has potential to cause constipation. Increase oral fluid and fiber intake. Contact primary care provider if you have not had a bowel movement within 48 hours after discharge 9. No anti-inflammatory medication until discussed at first post operative visit, this including Motrin, Aleve, Mobic, Diclofenac. 10. Follow up in office at 2 weeks postop with Edin Schwartz PA-C/Charles Saleh 11. Follow up with your primary care doctor 7-10 days after discharge. 12. Contact [facility] with any questions, . Patient Condition at Discharge: Good Plan - Discharge Summary Discharge Rx Participant: Yes New Discharge Prescriptions: New Aspirin [Adult Low Dose Aspirin EC] 81 mg PO BID #60 tab HYDROcodone/APAP 5-325MG [[place] 5-325] 1 - 2 tab PO Q6HR PRN #42 tab PRN Reason: Pain Docusate [Colace] 100 mg PO DAILY #30 capsule Continue Multivitamins, Thera [Multivitamin (formulary)] 1 tab PO DAILY Levothyroxine Sodium [Synthroid] 25 mcg PO QAM Calcium Carbonate [Calcium] 600 mg PO DAILY Hydrochlorothiazide [hydroCHLOROthiazide] 12.5 mg PO QAM Dicyclomine [Bentyl] 10 mg PO BID No Action Acetaminophen [Tylenol] 325 mg PO Q4H PRN PRN Reason: Pain Discharge Medication List Calcium Carbonate [Calcium] 600 mg PO DAILY 02/21/16 [History] Levothyroxine Sodium [Synthroid] 25 mcg PO QAM 02/21/16 [History] Multivitamins, Thera [Multivitamin (formulary)] 1 tab PO DAILY 02/21/16 [Histor y] Hydrochlorothiazide [hydroCHLOROthiazide] 12.5 mg PO QAM 06/14/21 [History] Acetaminophen [Tylenol] 325 mg PO Q4H PRN 03/09/22 [History] Dicyclomine [Bentyl] 10 mg PO BID 03/09/22 [History] Aspirin [Adult Low Dose Aspirin EC] 81 mg PO BID #60 tab 03/13/22 [Rx] Docusate [Colace] 100 mg PO DAILY #30 capsule 03/13/22 [Rx] HYDROcodone/APAP 5-325MG [[place] 5-325] 1 - 2 tab PO Q6HR PRN #42 tab 03/13/22 [Rx] Follow up Appointment(s)/Referral(s): Nazario Schwartz PAC [PHYSICIAN HOSPITAL COORDINATOR] - 2 Weeks Patient Instructions/Handouts: Knee Replacement (DC) Activity/Diet/Wound Care/Special Instructions: Orthopedic Discharge Instructions: 1. Wound care and infection precautions, keep incision dry and covered while showering, no lotions, creams, moisturizers. No soaking, pools, hot tubs. Do not scrub over incision. 2. Weight-bear as tolerated with walker / cane until follow-up. 3. Ice and elevate when necessary. Do not exceed 20 minutes per hour with ice pack. 4. Utilize compression sleeve until seen at first follow up appointment. 5. Pain meds and anticoagulants per prescription. 6. Pain medication has potential to cause constipation. Increase oral fluid and fiber intake. Contact primary care provider if you have not had a bowel movement within 48 hours after discharge. 7. No anti-inflammatory medication until discussed at first post operative visit, this including Motrin, Aleve, Mobic, Diclofenac. 8. Follow up in office at 2 weeks postop with Edin Schwartz PA-C / Charles Campbell PA-C 9. Follow up with your primary care doctor 7-10 days after discharge. 10. Contact [facility] with any questions, . Keep incision clean, dry, intact. While showering, cover silver foam dressing with Saran wrap. Silver foam dressing may be removed in 7 days, 03/19/2022 Medications: Discharge Disposition: HOME WITH HOME HEALTH SERVICES
[2022-03-13 15:36] VITALS: BP 108/65; PULSE 87; RESP 20; TEMP 99
--- NOTE | 2022-03-13 19:31 | P.CONS ---
History of Present Illness - Reason for Consult Consult date: 03/13/22 (delayed charting seen at 0945) HTN Requesting physician: Beto Cramer - History of Present Illness Patient is a 76-year-old female with hypertension, thyroid disorder, and chronic kidney disease stage II who presented for elective right total hip arthroplasty. She tolerated the procedure well without any postoperative complications. Patient seen and examined at bedside. She states her pain is fairly well controlled. She did great with stairs. She denies any chest pain, shortness breath, nausea, vomiting. We discussed taking her levothyroxine away from any other medications and food. This is that she has been doing the past. She is not concerned with going home. She follows with her PCP in a regular basis and has no acute concerns at this time. She denies any recent cough, cold, fever, flu, nausea, vomiting. Pertinent positives and negatives as discussed in HPI, a complete review of systems was performed and all other systems are negative. General: non toxic, no distress, appears at stated age Derm: warm, dry, JOSAFAT hose in place Head: atraumatic, normocephalic, symmetric Eyes: EOMI, no lid lag, anicteric sclera Mouth: no lip lesion, mucus membranes moist Cardiovascular: S1S2 reg, no murmur, positive posterior tibial pulse bilateral, Lungs: CTA bilateral, no rhonchi, no rales , no accessory muscle use Abdominal: soft, nontender to palpation, no guarding, no appreciable organomegaly Ext: no gross muscle atrophy, no edema, no contractures Neuro: CN II-XI grossly intact, no focal neuro deficits Psych: Alert, oriented, appropriate affect Assessment/plan: Patient with right direct anterior hip arthroplasty -Case discussed with PA and plan is for discharge home. -Pain control is adequate Hypothyroidism-patient to resume the home Synthroid, take this away from other medications. Patient is aware Hypertension -Resume home hydrochlorothiazide IBS -Continue with Bentyl -Monitor for constipation. Patient is aware and will take as needed stool softeners -Patient is medically optimized for discharge -Home medications addressed on the medical reconciliation. Thank you for allowing us to participate in the care of this pleasant patient. Do not hesitate to contact us with questions. Someone can be reached from the [facility] hospitalist group all hours of the day at [phone] or via perfect serve..? Past Medical History Past Medical History: Hypertension, Osteoarthritis (OA), Renal Disease, Thyroid Disorder Additional Past Medical History / Comment(s): chronic kidney disease stage 2, urinary leakage, IBS History of Any Multi-Drug Resistant Organisms: None Reported Past Surgical History: Cholecystectomy, Joint Replacement, Orthopedic Surgery, Tubal Ligation Additional Past Surgical History / Comment(s): left wrist cyst, right knee replaced 2020 Past Anesthesia/Blood Transfusion Reactions: No Reported Reaction Past Psychological History: No Psychological Hx Reported Smoking Status: Never smoker Past Alcohol Use History: Rare Past Drug Use History: None Reported - Past Family History Father Family Medical History: CVA/TIA Mother Family Medical History: No Reported History Medications and Allergies Home Medications Medication Instructions Recorded Confirmed Type Calcium Carbonate [Calcium] 600 mg PO DAILY 02/21/16 03/12/22 History Levothyroxine Sodium [Synthroid] 25 mcg PO QAM 02/21/16 03/12/22 History Multivitamins, Thera [Multivitamin 1 tab PO DAILY 02/21/16 03/12/22 History (formulary)] Hydrochlorothiazide 12.5 mg PO QAM 06/14/21 03/12/22 History [hydroCHLOROthiazide] Acetaminophen [Tylenol] 325 mg PO Q4H PRN 03/09/22 03/12/22 History Dicyclomine [Bentyl] 10 mg PO BID 03/09/22 03/12/22 History Aspirin [Adult Low Dose Aspirin EC] 81 mg PO BID #60 tab 03/13/22 Rx Docusate [Colace] 100 mg PO DAILY #30 capsule 03/13/22 Rx HYDROcodone/APAP 5-325MG [[place] 1 - 2 tab PO Q6HR PRN #42 tab 03/13/22 Rx 5-325] Allergies Allergy/AdvReac Type Severity Reaction Status Date / Time No Known Allergies Allergy Verified 03/12/22 13:20 Physical Exam Osteopathic Statement: *. No significant issues noted on an osteopathic structural exam other than those noted in the History and Physical/Consult. Vitals: Vital Signs Temp Pulse Resp BP Pulse Ox 03/13/22 14:00 99.0 F 87 20 108/65 99 03/13/22 08:00 98.5 F 73 16 102/63 94 L 03/13/22 01:18 97.6 F 61 14 99/62 97 03/12/22 20:23 97.6 F 58 L 18 116/81 100 03/12/22 19:30 62 16 116/69 98 Intake and Output 03/13/22 03/13/22 03/13/22 06:59 14:59 22:59 Output Total 500 Balance -500 Output: Urine 500 Other: Voiding Method Toilet # Voids 1 Results CBC & Chem 7: 03/13/22 05:46 Labs: Abnormal Lab Results - Last 24 Hours (Table) 03/13/22 Range/Units 05:46 RBC 3.69 L (4.10-5.20) X 10*6/uL Hgb 11.4 L (12.0-15.0) g/dL Hct 34.5 L (37.2-46.3) % Eosinophils # 0.02 L (0.04-0.35) X 10*3/uL
== END 2022-03-13 16:19 | disposition home health service (06) ==
LOC: OR 12:57 → 4SSUR 17:02 → OR 03-13 16:19
PROVIDERS: ATTEND Orthopaedic Surgery
DX: M16.11 Unilateral primary osteoarthritis, right hip (principal); E03.9 Hypothyroidism, unspecified; I12.9 Hypertensive chronic kidney disease with stage 1 through stage 4 chronic kidney disease, or unspecified chronic kidney disease; N18.2 Chronic kidney disease, stage 2 (mild); K58.9 Irritable bowel syndrome, unspecified; Z98.51 Tubal ligation status; F41.9 Anxiety disorder, unspecified; Z96.651 Presence of right artificial knee joint; Z98.890 Other specified postprocedural states; Z90.49 Acquired absence of other specified parts of digestive tract; Z79.1 Long term (current) use of non-steroidal anti-inflammatories (NSAID); Z79.890 Hormone replacement therapy; Z79.899 Other long term (current) drug therapy; Z79.82 Long term (current) use of aspirin
CPT/HCPCS: 97161; 97165; 85025; 88300; 73501; 27130; C1776; J1100; J0690 ×3; J2405; J1650; J1170; 86850; 86900; 86901

== ENCOUNTER → 2023-03-25 | Outpatient (CLI) | payer MEDICARE | END | disposition home or self-care (01) | LOC: LABPAT 10:05 | PROVIDERS: ATTEND Orthopaedic Surgery | DX: Z01.812 Encounter for preprocedural laboratory examination (principal); M16.12 Unilateral primary osteoarthritis, left hip; Z22.322 Carrier or suspected carrier of Methicillin resistant Staphylococcus aureus | CPT/HCPCS: 87070 ==

== ENCOUNTER 2023-04-01 08:02 | Day surgery (SDC) | payer MEDICARE ==
--- NOTE | 2023-03-31 12:12 | HP ---
HISTORY AND PHYSICAL DATE OF SURGERY: 04/01/2023. HISTORY OF PRESENT ILLNESS: Justine Hernandez is a 77-year-old patient, seen with symptomatic left hip osteoarthritis. We discussed treatment options. She elected to proceed with direct anterior left total hip arthroplasty. Consent regarding the procedure was obtained. Medical clearance was provided by Johnathan Turner NP. PAST MEDICAL HISTORY: Hypertension, hypothyroidism. PAST SURGICAL HISTORY: Right total hip arthroplasty, tubal ligation, cholecystectomy. MEDICATIONS: 1. Levothyroxine. 2. Hydrochlorothiazide. 3. Ibuprofen. 4. Vitamins. ALLERGIES: None. SOCIAL HISTORY: She denies tobacco use. PHYSICAL EVALUATION OF THE LEFT HIP: She has diffuse tenderness about the hip girdle. Very limited range of motion with severe pain. Positive hip impingement sign. Straight-leg raise is negative. Her distal neurovascular exam is intact. IMAGING STUDIES: Radiographs of the left hip reveal severe osteoarthritic changes. IMPRESSION: 1. Left hip osteoarthritis. 2. Hypertension. 3. Hypothyroidism. PLAN: Direct anterior left total hip arthroplasty. MMODL / IJN: [id number] /
[~2023-04-01 08:02] MED LIST changes: +HYDROmorphone 0.5 MG/0.5 ML SYRINGE IVP PRN; +LACTATED RINGERS 1,000 ML IV SCH; +LIDOCAINE 1% (10MG/ML) FOR IV START INTRADERMA PRN
[2023-04-01] MEDS ORDERED: DEXAMETHASONE SOD PHOSPHATE 4 MG/ML 1 ML VIAL IVP ONE (08:40)
[2023-04-01] MEDS ORDERED: ONDANSETRON 4 MG/2 ML VIAL ONE (08:41)
[2023-04-01] MEDS ORDERED: fentaNYL (PF) 50 MCG/1 ML VIAL IVP ONE (08:50)
[2023-04-01] MEDS ORDERED: MIDAZOLAM 2 MG/2 ML VIAL IVP ONE (08:50)
--- NOTE | 2023-04-01 09:17 | P.ANPRN ---
Procedure Note - Anesthesia - Nerve Block Performed Left Seamus Single Time Out Performed: Yes (0849) Date of Procedure: 04/01/23 Procedure Start Time: 08:50 Procedure Stop Time: 08:53 Location of Patient: PreOp Indication: Acute Post-Operative Pain, Requested by Surgeon Specifically requested for management of pain by DrAurelio: Beto Cramer Sedation Type: Sedate with meaningful contact maintained Position: Supine Catheter: None Needle Types: Pajunk Needle Gauge: 21 Ultrasound used to visualize needle placement: Yes Ultrasound used to observe medication spread: Yes Injectate: 0.5% Ropivacaine (see comment for volume) (30cc) Blood Aspirated: No Pain Paresthesia on Injection Noted: No Resistance on Injection: Normal Image Stored and Saved: Yes Events: Uneventful and Well Tolerated
--- NOTE | 2023-04-01 09:19 | P.ANPRN ---
Procedure Note - Anesthesia - Nerve Block Performed Left Adductor Canal Infusion Time Out Performed: Yes (0640) Date of Procedure: 04/01/23 Procedure Start Time: 06:41 Procedure Stop Time: 06:46 Location of Patient: PreOp Indication: Acute Post-Operative Pain, Requested by Surgeon Specifically requested for management of pain by DrAurelio: Frandy Diaz Sedation Type: Sedate with meaningful contact maintained Preparation: Sterile Prep, Sterile Dressing Position: Supine Catheter Depth at Skin (cm): 8 Catheter: Indwelling Needle Types: Pajunk Needle Gauge: 18 Ultrasound used to visualize needle placement: Yes Ultrasound used to observe medication spread: Yes Injectate: 0.5% Ropivacaine (see comment for volume) (15cc + 5cc nacl pf) Blood Aspirated: No Pain Paresthesia on Injection Noted: No Resistance on Injection: Normal Image Stored and Saved: Yes Events: Uneventful and Well Tolerated
[2023-04-01] MEDS ORDERED: KETAMINE 10 MG/ML 20 ML VIAL ONE (09:48)
[2023-04-01] MEDS ORDERED: ROPIVACAINE 5 MG/ML 30 ML VIAL ONE (09:48)
[2023-04-01] MEDS ORDERED: TRANEXAMIC ACID IN NACL,ISO-OS 1,000 MG/100 ML BAG ONE (09:48)
[2023-04-01] MEDS ORDERED: MIDAZOLAM 2 MG/2 ML VIAL ONE (09:48)
[2023-04-01] MEDS ORDERED: PROPOFOL 10 MG/ML 20 ML VIAL IV ONE (09:48)
[2023-04-01] MEDS ORDERED: fentaNYL (PF) 50 MCG/ML 2 ML AMP ONE (09:48)
[2023-04-01] MEDS ORDERED: ceFAZolin 1,000 MG in SODIUM CHLORIDE 0.9% 1,000 ML IRRIGATION ONE (10:26)
[2023-04-01] MEDS ORDERED: HYDROcodone/APAP 5-325MG 1 EACH TAB PO PRN (11:21)
[2023-04-01] MEDS ORDERED: NALOXONE 0.4 MG/ML 1 ML VIAL IV PRN (11:21)
[2023-04-01] MEDS ORDERED: HYDROmorphone 0.5 MG/0.5 ML SYRINGE IVP PRN ×3 (11:21)
[2023-04-01] MEDS ORDERED: ONDANSETRON 4 MG/2 ML VIAL IVP PRN (11:21)
--- NOTE | 2023-04-01 11:21 | P.OP ---
Date of Procedure: 04/01/23 Preoperative Diagnosis: Left hip osteoarthritis Postoperative Diagnosis: Left hip osteoarthritis Procedure(s) Performed: Direct anterior left total hip arthroplasty Implants: 1. Depuy [place] size 12 standard collar rested femoral stem 2. Depuy [place] 54 mm multi hole press-fit acetabular shell 3. Depuy [place] neutral polyethylene acetabular liner 36 mm ID 54 mm OD 4. Biolox delta ceramic femoral head +1.5 36 mm Anesthesia: regional (Erector spinae block), spinal Surgeon: Beto Cramer Rod Puller And Coiler #1: Nazario Schwartz Estimated Blood Loss (ml): 75 Pathology: other (Femoral head) Condition: stable Disposition: PACU Indications for Procedure: 77-year-old patient was seen with symptomatic left hip osteoarthritis. After treatment options were discussed, she elected to proceed with direct anterior left total hip arthroplasty. Operative Findings: See description of procedure Description of Procedure: The patient was taken to the operative suite. Patient underwent a spinal anesthetic by the department of anesthesia. Patient was then transferred to the [place] table. Patient was given preoperative IV antibiotics and TXA. Both lower extremities were placed in standard leg spars. The hip was then prepped and draped in the normal sterile orthopedic fashion. A standard anterior incision was made beginning 3 cm lateral and 1 cm distal to the ASIS extending 10 cm. Dissection was then carried down through the subcutaneous soft tissues down to the fascia overlying the tensor fascia ronda. An incision was now made through the fascia. Careful dissection was taken down exposing the tensor fascia ronda muscle. A Cobra retractor was now placed along the medial femoral neck and a second one along the lateral femoral neck. The venous circumflex vessels were now identified, cauterized and clipped. We identified the anterior hip capsule. An incision was made through the hip capsule along the lateral border. I performed a partial anterior capsulectomy. Retractors were now placed around the femoral neck itself. A femoral neck cut was now made with a sagittal saw. It was completed with an osteotome at the lateral neck area. The femoral head w as now removed without difficulty. The extremity was now rotated to 60 of external rotation. It was locked in position. Residual labrum was now debrided out. Serial reaming was performed of the acetabulum while Edin GATICA assisted holding an anterior retractor for exposure. Once we reached the appropriate size and a trial was position and fit nicely. The appropriate size was now chosen opened and made available. It was introduced into the acetabulum without difficulty. The C-arm/fluoroscopy was now brought into the operative field. We made sure we had a true AP pelvic view. We now under direct C- arm/fluoroscopy introduced into the acetabular component with appropriate version and inclination. I held the cup in appropriate position well Edin GATICA used a mallet to seat the acetabular component. I noted the component now to be well seated and stable. Acetabular cup introduce her was removed. The C-arm was pulled back. An appropriate liner was introduced and clicked into position. It was felt to be stable. At this point retractors were removed. The extremity was now placed into 140 external rotation with no traction. The leg was now dropped to the ground and adducted. Appropriate retractors were now positioned along the proximal femur. We also placed our femoral look into position. Additional capsular releasing was performed to gain access to the pr oximal femur. We now used a box osteotome. A canal finder was now utilized. Serial broaching was now performed with the assistance of Edin GATICA tapping the broaches down with a mallet while held the broach in appropriate rotation and position. This was done until we reached the appropriate size with good overall rotational stability. Appropriate calcar planing was performed. A trial head/neck was placed into position. The hip was now reduced. The C- arm/fluoroscopy was brought back into the operative field. I obtained AP pelvis which demonstrate adequately alignment. The trial components appeared adequately sized and position. The C-arm/fluoroscopy was pulled back. Retractors were repositioned and the hip was dislocated. The leg was again taken down to the ground and adducted. Appropriate retractors were repositioned as well as the femoral hook. All trial components were removed. The femoral implant was opened along with the femoral head. The femoral implant was i ntroduced on the appropriate handle into our pre-broached area. I held the component position well Edin GATICA used a mallet to seat the femoral component. The femoral component was now noted to be well seated and stable.. The femoral head was introduced with good positioning and fixation noted. Retractors were now removed. The hip was now reduced. There appeared be good positioning of the hip confirmed on intraoperative fluoroscopy. Spot films were obtained to document this. A second gram of TXA was given. Bipolar cautery had been utilized intermittently through the procedure for hemostasis. The wound was irrigated copiously with pulse lavage mechanical irrigation. The fascia was repaired with Vicryl suture. The subcutaneous soft tissues were repaired in layers with Vicryl suture. The skin was approximated with pernio/Dermabond. Sterile dressings were applied. Patient was then awakened, transferred to a bed and taken to recovery in stable condition. Edin GATICA assisted with the complex procedure.
--- NOTE | 2023-04-01 11:27 | XR ---
Fluoroscopy History: Left Hip- Ant, Left Hip- Ant, , 14.3 sec fluoro, 0.8029 DAP.
--- NOTE | 2023-04-01 12:02 | FL ---
EXAMINATION TYPE: FL guidance operating room DATE OF EXAM: 04/01/2023 FLUOROSCOPY Fluoroscopy time of 14.3 seconds was used during anterior left hip replacement. 3 image/s document/s the procedure. DOSE AREA PRODUCT (DAP) UGY*M,MGY*CM: 0.8029 DAP.
[2023-04-01] MEDS ORDERED: LACTATED RINGERS 1,000 ML IV ONE (12:07)
[2023-04-01] MEDS: LACTATED RINGERS 1,000 ML IV SCH (18:02)
[2023-04-01] MEDS: DICYCLOMINE 10 MG CAP PO SCH (19:51)
[2023-04-01] MEDS: HYDROcodone/APAP 5-325MG 1 EACH TAB PO PRN (20:27)
[2023-04-01] MEDS ORDERED: SENNOSIDES-DOCUSATE SODIUM 1 EACH TAB PO SCH (21:00)
[2023-04-02] MEDS: LACTATED RINGERS 1,000 ML IV SCH (00:18)
--- NOTE | 2023-04-02 02:14 | CONS ---
CONSULTATION REASON FOR CONSULTATION: Advice regarding thyroid disorders and other medical issues. HISTORY OF PRESENT ILLNESS: This is a 77-year-old woman with past medical history of thyroid disorder and other medical issues, being followed by Dr. Turner in the outpatient setting, underwent left hip arthroplasty by Dr. Cramer. Otherwise, there is no history of any chest pain, shortness of breath, hematochezia, or melena at this time. PAST MEDICAL HISTORY: Reviewed, hypothyroidism, rest of the history and rest of the chart is also reviewed. HOME MEDICATIONS: Reviewed, multivitamins, dose and rest of medication noted and reviewed. ALLERGIES: None. FAMILY HISTORY: No history of heart disease or stroke in the family. SOCIAL HISTORY: History of smoking or alcohol. REVIEW OF SYSTEMS: A 14-point review is negative except as mentioned earlier. PHYSICAL EXAMINATION: VITAL SIGNS: Pulse is 55, blood pressure ntd and respirations 16. NECK: No jugular venous distention. CARDIOVASCULAR: S1, S2 muffled. RESPIRATIONS: Clear to auscultation. ABDOMEN: Soft, nontender. LEGS: Status post surgery. NERVOUS SYSTEM: No focal deficits. SKIN: No ulcer, rash, bleeding. JOINTS: No active deforming arthropathy. LABORATORY DATA: Not available. ASSESSMENT: 1. Status post left hip total arthroplasty. 2. Chronic kidney disease, stage 2. 3. Cholecystectomy. 4. Hypothyroidism. RECOMMENDATIONS AND DISCUSSION: This 77-year-old woman presented after surgery. At this time, I recommended to resume the home medications. I would recommend followup with creatinine also to ensure normalcy. Otherwise, DVT prophylaxis, incentive spirometry. Resume the home medications. We will follow the patient closely. MARYL / IJN: [id number] / MTDCarey
[2023-04-02] MEDS: HYDROcodone/APAP 5-325MG 1 EACH TAB PO PRN (05:52)
[2023-04-02] MEDS ORDERED: LEVOTHYROXINE 25 MCG TAB PO SCH (06:30)
[2023-04-02 08:05] VITALS: BP 100/65; PULSE 60; RESP 18; TEMP 98.1
[2023-04-02] MEDS: DICYCLOMINE 10 MG CAP PO SCH (08:42)
[2023-04-02 08:50] LABS: Basophils # (A) 0.01 X 10*3/uL (0.00-0.10); Basophils % (A) 0.1 %; Eosinophils # (A) 0.02 X 10*3/uL (0.04-0.35); Eosinophils % (A) 0.2 %; HCT 34.6 % (37.2-46.3); Immature Grans, Automated 0.4 %; Lymphocytes # (A) 1.46 X 10*3/uL (0.90-5.00); Lymphocytes % (A) 17.5 %; MCH 29.6 pg (27.0-32.0); MCHC 31.8 g/dL (32.0-37.0); MCV 93.3 fL (80.0-97.0); Monocytes # (A) 0.97 X 10*3/uL (0.20-1.00); Monocytes % (A) 11.6 %; NRBC Per 100 WBC 0 /100 WBCS (0.0-0.0); Neutrophils # (A) 5.85 X 10*3/uL (1.80-7.70); Neutrophils % (A) 70.2 %; Platelet Count 187 X 10*3/uL (140-440); RBC 3.71 X 10*6/uL (4.10-5.20); RDW 13.3 % (11.5-14.5); WBC 8.34 X 10*3/uL (4.50-10.00)
[2023-04-02 08:55] LABS: African American GFR (CKD) 96.2 (60.0-200.0); Anion Gap 10.2 mmol/L (10.00-18.00); BUN/Creat Ratio 19.71 Ratio (12.00-20.00); Blood Urea Nitrogen 13.8 mg/dL (9.0-27.0); Calcium 9.2 mg/dL (8.7-10.3); Carbon Dioxide 25.8 mmol/L (20.0-27.5)
[2023-04-02] MEDS ORDERED: FAMOTIDINE 20 MG TAB PO SCH (09:00)
[2023-04-02] MEDS ORDERED: MULTIVITAMINS, THERA 1 EACH TAB PO SCH (09:00)
[2023-04-02] MEDS ORDERED: ENOXAPARIN 40 MG/0.4 ML SYRINGE SQ SCH (09:00)
[2023-04-02] MEDS ORDERED: CALCIUM CARBONATE 500 MG CHEWABLE PO SCH (09:00)
[2023-04-02] MEDS ORDERED: hydroCHLOROthiazide 12.5 MG CAP PO SCH (09:00)
--- NOTE | 2023-04-02 12:20 | PN ---
PROGRESS NOTE DATE OF SERVICE: 04/02/2023 SUBJECTIVE: This is a 77-year-old woman who was admitted after left hip surgery, is improving significantly. No chest pain, no palpitations, no fever. OBJECTIVE: VITAL SIGNS: Pulse is 60, blood pressure 110/60, and respirations 18. CHEST: Clear to auscultation. CARDIOVASCULAR: S1, S2. ABDOMEN: Soft. LEGS: Status post surgery. LABORATORY DATA: Reviewed. ASSESSMENT: 1. Status post left hip total arthroplasty. 2. Chronic kidney disease stage 2, normal creatinine currently. 3. Cholecystectomy. 4. Hypothyroidism. RECOMMENDATIONS: Recommend to continue current management, continue symptomatic treatment, follow closely with primary physician. DVT prophylaxis. Rest of the recommendations per Orthopedic surgery. MMODL / IJN: [id number] /
--- NOTE | 2023-04-02 13:08 | P.PN ---
Subjective Progress Note Date: 04/02/23 Principal diagnosis: Status post right anterior left total hip arthroplasty Patient evaluated at bedside, she is resting in her hospital chair. She was able to ambulate very well with physical therapy. She does note some soreness in the left lower extremity. She's been urinating with no difficulty . She denies headaches, lightheadedness, chest pain or shortness of breath currently. Objective - Vital Signs Vital signs: Vital Signs Temp 98.1 F 04/02/23 07:16 Pulse 60 04/02/23 07:16 Resp 18 04/02/23 07:16 BP 100/65 04/02/23 07:16 Pulse Ox 97 04/02/23 07:16 FiO2 Intake & Output 04/01/23 04/02/23 04/02/23 18:59 06:59 18:59 Intake Total 926 118 Output Total 75 Balance 851 118 Weight 93.6 kg Intake: IV 926 Oral 118 Output: Estimated Blood Loss 75 Other: # Voids 1 1 - Exam Left lower extremity: Incision is clean, dry, and intact. The foam dressing in good condition. [Thre is minimal soft tissue swelling and ecchymosis surrounding the medial and lateral aspects of the incision.] ciera is soft, no tenderness with palpation. Plantar flexion, dorsiflexion, EHL, FHL are intact. Sensory exam to light touch throughout the extremity is intact, [dosal pedis pulses 2+.] - Labs CBC & Chem 7: 04/02/23 04:57 04/02/23 05:06 Labs: Abnormal Lab Results - Last 24 Hours (Table) 04/02/23 04/02/23 Range/Units 04:57 05:06 RBC 3.71 L (4.10-5.20) X 10*6/uL Hgb 11.0 L (12.0-15.0) g/dL Hct 34.6 L (37.2-46.3) % MCHC 31.8 L (32.0-37.0) g/dL Eosinophils # 0.02 L (0.04-0.35) X 10*3/uL Glucose 118 H (70-110) mg/dL Assessment and Plan Assessment: Postoperative day #1 status post direct anterior left total hip arthroplasty Plan: Pain control, plan for discharge home on Lissie 5 mg/325 mg DVT prophylaxis, aspirin 81 mg twice a day for 30 days Wound care instructions discussed, this to include showering and use of bandages Home physical therapy/nursing after discharge Medical recommendations Discharge planning: Patient stable for discharge home today Time with Patient: Less than 30
--- NOTE | 2023-04-02 13:13 | P.DS ---
Providers Date of admission: 04/01/2023 Expected date of discharge: 04/02/23 Attending physician: Beto Cramer Consults: 04/01/23 11:21 Consult Physician Routine Consulting Provider: Eugene Lai Consult Reason/Comments: Medical management Do you want consulting provider notified?: Yes Primary care physician: Edin Dominguez Hospital Course: Date of admission: 04/01/2023 Date of discharge: 2022 Admission diagnosis: Status post direct anterior left total hip arthroplasty Discharge diagnosis: Same Attending physician: Dr. Cramer Surgical procedures: Left direct anterior total hip arthroplasty Brief history: Patient is a 77-year-old female with a history of progressive primary left hip osteoarthritis. At this point patient has failed conservative treatment measures and has opted to proceed with a elective left direct anterior total hip arthroplasty. Hospital course: Details of patient's surgery can be found in operative report. Patient tolerated the procedure well and was subsequently transported to orthopedic floor. Patient's orthopeidc and medical care was provided daily. Patient had daily laboratory tests performed for evaluation of overall blood counts. Patient had daily physical therapy to include strengthening range of motion as well as education with walker ambulation. Patient was treated with Lovenox0 for their postoperative DVT prophylaxis during their inpatient stay. Patient was noted to have a relatively uneventful postoperative course. Patient reported satisfactory pain control with oral pain medications by postoperative day 0. Patient showed satisfactory progress with physical therapy. Patient moved steadily through the program and had no difficulty meeting the goals by postoperative day 1. Given patient's otherwise satisfactory course and having met physical therapy goals, plan is to discharge patient home on postoperative day 1. Discharge condition/disposition: Patient will be discharged home in stable condition. Discharge medications: Instructions are given on resumption of patient's normal daily medications per primary care recommendation, in addition patient will be prescribed [place] 5 mg/325 mg, senna, aspirin 81 mg. Discharge instructions: 1. Wound care and infection precautions, keep incision dry and covered while showering, no lotions, creams, moisturizers. No soaking, tubs, pools, hottubs. Do not scrub over the incision. 2. Weight-bear as tolerated with walker / cane until follow-up. 3. Ice and elevate when necessary. Do not exceed 20 minutes per hour with ice pack. 4. Utilize compression sleeve until seen at first follow up appointment. 5. Visiting nursing care. 6. Home physical therapy. 7. Pain meds and anticoagulants per prescription. 8. Pain medication has potential to cause constipation. Increase oral fluid and fiber intake. Contact primary care provider if you have not had a bowel movement within 48 hours after discharge 9. No anti-inflammatory medication until discussed at first post operative visit, this including Motrin, Aleve, Mobic, Diclofenac 10. Follow up in office at 2 weeks postop with Edin Schwartz PA-C/Charles Saleh 11. Follow up with your primary care doctor 7-10 days after discharge. 12. Contact [facility] with any questions, . Procedures: Direct anterior left total hip arthroplasty Patient Condition at Discharge: Good Plan - Discharge Summary Discharge Rx Participant: No New Discharge Prescriptions: New Aspirin [Adult Low Dose Aspirin EC] 81 mg PO BID #60 tab HYDROcodone/APAP 5-325MG [[place] 5-325] 1 - 2 tab PO Q6HR PRN #42 tab PRN Reason: Pain Sennosides/Docusate Sodium [Senna-S 8.6-50 mg Tablet] 1 each PO DAILY PRN #30 tablet PRN Reason: Constipation No Action Multivitamins, Thera [Multivitamin (formulary)] 1 tab PO DAILY Levothyroxine Sodium [Synthroid] 25 mcg PO QAM Calcium Carbonate [Calcium] 600 mg PO DAILY hydroCHLOROthiazide 12.5 mg PO QAM Dicyclomine [Bentyl] 10 mg PO BID Acetaminophen [Tylenol] 325 mg PO Q4H PRN PRN Reason: Pain Discharge Medication List Calcium Carbonate [Calcium] 600 mg PO DAILY 02/21/16 [History] Levothyroxine Sodium [Synthroid] 25 mcg PO QAM 02/21/16 [History] Multivitamins, Thera [Multivitamin (formulary)] 1 tab PO DAILY 02/21/16 [History] hydroCHLOROthiazide 12.5 mg PO QAM 06/14/21 [History] Acetaminophen [Tylenol] 325 mg PO Q4H PRN 03/09/22 [History] Dicyclomine [Bentyl] 10 mg PO BID 03/09/22 [History] Aspirin [Adult Low Dose Aspirin EC] 81 mg PO BID #60 tab 04/02/23 [Rx] HYDROcodone/APAP 5-325MG [[place] 5-325] 1 - 2 tab PO Q6HR PRN #42 tab 04/02/23 [R x] Sennosides/Docusate Sodium [Senna-S 8.6-50 mg Tablet] 1 each PO DAILY PRN #30 tablet 04/02/23 [Rx] Follow up Appointment(s)/Referral(s): Nazario Schwartz, ROHITH [PHYSICIAN COMMUTATOR REPAIRER] - 04/17/23 3:30 pm Edin Dominguez MD [Primary Care Provider] - 1 Week Residential Home[facility] [NON-STAFF] - As Needed Activity/Diet/Wound Care/Special Instructions: Orthopedic Discharge Instructions: 1. Wound care and infection precautions, keep incision dry and covered while showering, no lotions, creams, moisturizers. No soaking, pools, hot tubs. Do not scrub over incision. 2. Weight-bear as tolerated with walker / cane until follow-up. 3. Ice and elevate when necessary. Do not exceed 20 minutes per hour with ice pack. 4. Utilize compression sleeve until seen at first follow up appointment. 5. Pain meds and anticoagulants per prescription. 6. Pain medication has potential to cause constipation. Increase oral fluid and fiber intake. Contact primary care provider if you have not had a bowel movement within 48 hours after discharge. 7. No anti-inflammatory medication until discussed at first post operative visit, this including Motrin, Aleve, Mobic, Diclofenac. 8. Follow up in office at 2 weeks postop with Edin Schwartz PA-C/Charles Campbell PA-C 9. Follow up with your primary care doctor 7-10 days after discharge. 10. Contact [facility] with any questions, . Wound care instructions: 1. Okay to shower directly over incision as of 04/08/2023 2. Okay to remove dressing is a 04/08/2023 Discharge Disposition: HOME WITH HOME HEALTH SERVICES
== END 2023-04-02 16:10 | disposition home health service (06) ==
LOC: OR 08:02 → 4SSUR 11:39 → OR 04-02 16:10
PROVIDERS: ATTEND Orthopaedic Surgery
DX: M16.12 Unilateral primary osteoarthritis, left hip (principal); G89.18 Other acute postprocedural pain; I10 Essential (primary) hypertension; E03.9 Hypothyroidism, unspecified; Z98.51 Tubal ligation status; Z90.49 Acquired absence of other specified parts of digestive tract; Z79.899 Other long term (current) drug therapy
CPT/HCPCS: 97162; 64447; 86900; 86901; 80048; 85025; 86850; 88300; 73501; 27130; C1776; J2250; J1100; J0690 ×3; J2405; J1650; J3010 ×2; J2795; J2704; J1170